=== PATIENT | female | born 1995 | race Two or more races ===

== ENCOUNTER 2017-03-28 03:33 | Emergency (ER) | payer SELFPAY ==
[~2017-03-28] VITALS: Ht 157.5 cm; Wt 59.0 kg
== END 2017-03-28 04:17 | disposition home or self-care (01) ==
LOC: ED 04:11
DX: F10.120 Alcohol abuse with intoxication, uncomplicated (principal)
CPT/HCPCS: 99283

== ENCOUNTER 2020-10-22 00:16 | Emergency (ER) | payer SELFPAY ==
[~2020-10-22] VITALS: Ht 157.5 cm; Wt 63.0 kg
[2020-10-22 00:38] VITALS: BP 110/89
== END 2020-10-22 00:42 | disposition left against medical advice (07) ==
LOC: ED 00:26
DX: S02.2XXA Fracture of nasal bones, initial encounter for closed fracture (principal); F10.120 Alcohol abuse with intoxication, uncomplicated; R94.31 Abnormal electrocardiogram [ECG] [EKG]; Z72.9 Problem related to lifestyle, unspecified; Y04.8XXA Assault by other bodily force, initial encounter; Y93.89 Activity, other specified; Y92.89 Other specified places as the place of occurrence of the external cause; Y99.8 Other external cause status; Y90.0 Blood alcohol level of less than 20 mg/100 ml
CPT/HCPCS: 93005; 99283